=== PATIENT | female | born 1990 | race Caucasian/White ===

== ENCOUNTER → 2016-10-14 | Outpatient (CLI) | payer BC ==
--- NOTE | 2016-10-14 21:09 | MR ---
EXAMINATION TYPE: MR brain wo con DATE OF EXAM: 10/14/2016 8:06 PM COMPARISON: NONE HISTORY: Chronic headache, no trauma. Persistent daily headaches per order. TECHNIQUE: Multiplanar, multisequence imaging of the brain and brainstem is performed without IV cont rast. FINDINGS: Diffusion weighted images demonstrate no evidence of a recent infarct or other diffusion abnormality. There is no extraaxial fluid collection or significant white matter signal abnormality. The ventricu lar system and cisternal spaces are normal in size and appearance. The brain volume is age appropria te. Midline structures demonstrate normal morphology. The craniocervical junction appears within normal limits. Normal vascular flow voids are present. The visualized sinuses are clear and the globes are i ntact. IMPRESSION: No significant finding is seen to account for patient's symptoms.
== END | disposition home or self-care (01) ==
LOC: RADMRIMAIN 19:00
PROVIDERS: ATTEND Family Medicine
DX: R51 Headache (principal)
CPT/HCPCS: 70551

== ENCOUNTER 2017-09-28 10:27 | Outpatient (CLI) | payer BC ==
[2017-09-28 11:18] VITALS: BP 122/80; PULSE 112; RESP 16; TEMP 97.7
--- NOTE | 2017-10-27 08:32 | P.MSEPDOC ---
Presenting Problems - Arrival Data Date of Arrival on Unit: 09/28/17 Time of Arrival on Unit: 10:27 Mode of Transport: Ambulatory - Complaint OB-Reason for Admission/Chief Complaint: Rule Out PROM Comment: Pt c/o "Small gush" clear fluid at 0830-no continued leaking, didn't need to wear pad or change clothing. Medical History - Information : 2 Para: 1 Term: 1 : 0 Abortions: Spontaneous or Elective: 0 Number of Living Children: 1 - Gestational Age Gestational Age by HARISH (wks/days): 36 Weeks and 6 Days Review of Systems - Review of Systems Constitutional: No problems Breast: No problems ENT: No problems Cardiovascular: No problems Respiratory: No problems Gastrointestinal: No problems Genitourinary: No problems Musculoskeletal: No problems Neurological: No problems Skin: No problems Vital Signs - Temperature Temperature: 97.7 F Temperature Source: Temporal Artery Scan - Pulse Left Sitting Brachial Pulse Rate: 112 Pulse Assessment Method: Automatic Cuff - Respirations Respiratory Rate: 16 Oxygen Delivery Method: Room Air O2 Sat by Pulse Oximetry: 97 - Blood Pressure Right Arm Sitting Blood Pressure: 122/80 Blood Pressure Mean: 94 Blood Pressure Source: Automatic Cuff Medical Screen Scoring (Pre) - Cervical Exam Dilation: 1-3 cm = 1 Effacement: More than 50% = 2 Membranes: Intact - Uterine Contractions Frequency: N/A Duration: N/A Intensity: N/A - Maternal Vital Signs Maternal Temperature: N/A Maternal Blood Pressure: N/A Maternal Respirations: N/A - Pain Assessment Pain Intensity: 0 - Maternal Trauma Maternal Trauma: N/A - Assessment Baseline FHR: 155 Heart Rate - NICHD Category: Category I (Normal) = 0 NST: Reactive Position: N/A Station: N/A - Total Score Total Score (Pre): 3 - Level of Risk Level of Risk: Low (0-5) Physician Notification (Pre) - Physician Notified Physician Notified Date: 09/28/17 Physician Notified Time: 11:08 Physician/Practitioner Notifed:: Stanislaw Spoke With: Stanislaw New Order Received: Yes - Notification Comment Comment: Negative amnisure, reactive NST, pt may be d/c home with pulse recheck of 100 or less. Pts pulse rechecked-98. Disposition - Disposition OB Disposition: Discharge to home, Written follow up instructions reviewed Discharge Date: 09/28/17 Discharge Time: 11:15 I agree with the RN Medical Screening Exam: Yes Risk & Benefit of care provided described in d/c instruction: Yes Diagnosis: FALSE LABOR BEFORE 37 COMPLETED WEEKS OF GEST, THIRD TRI
== END 2017-09-28 11:15 | disposition home or self-care (01) ==
LOC: FBPOP 10:27
PROVIDERS: ATTEND Obstetrics & Gynecology
DX: O47.03 False labor before 37 completed weeks of gestation, third trimester (principal); Z3A.36 36 weeks gestation of pregnancy
CPT/HCPCS: 59025; 84112; 99213

== ENCOUNTER 2017-10-20 13:55 | Inpatient (IN) | payer BC ==
[2017-10-20] MEDS: LACTATED RINGERS 1,000 ML IV SCH ×2 (14:25→15:35)
[2017-10-20] MEDS ORDERED: OXYTOCIN 10 UNIT/ML 1 ML VIAL IM PRN (14:29)
[2017-10-20] MEDS ORDERED: CARBOPROST TROMETHAMINE 250 MCG/ML 1 ML AMP IM PRN (14:29)
[2017-10-20] MEDS ORDERED: LIDOCAINE 1% (PF) 10 MG/ML (30 ML SDV) SQ PRN (14:29)
[2017-10-20] MEDS ORDERED: METHYLERGONOVINE 0.2 MG/ML 1 ML AMP IM PRN (14:29)
[2017-10-20] MEDS ORDERED: TERBUTALINE 1 MG/ML VIAL SQ PRN (14:29)
[2017-10-20] MEDS ORDERED: OXYTOCIN 20 UNITS/1000 ML NS 1,000 ML IV SCH ×2 (14:30→17:15)
[2017-10-20] MEDS ORDERED: LACTATED RINGERS 1,000 ML IV SCH (14:30)
[2017-10-20 14:52] VITALS: BMI 29.6
[2017-10-20 15:31] LABS: Basophils % (A) 0 %; Eosinophils % (A) 0 %; HCT 36.2 % (34.0-46.0); HGB 11.9 gm/dL (11.4-16.0); Lymphocytes # (A) 1.4 k/uL (1.0-4.8); Lymphocytes % (A) 13 %; MCH 30.5 pg (25.0-35.0); MCHC 32.8 g/dL (31.0-37.0); MCV 92.7 fL (80.0-100.0); Monocytes # (A) 0.5 k/uL (0-1.0); Monocytes % (A) 5 %; Neutrophils # (A) 8.5 k/uL (1.3-7.7); Neutrophils % (A) 80 %; Platelet Count 188 k/uL (150-450); RDW 13.9 % (11.5-15.5); WBC 10.6 k/uL (3.8-10.6)
--- NOTE | 2017-10-20 15:56 | P.HPOB ---
History of Present Illness H&P Date: 10/20/17 Chief Complaint: IUP @ 40 0/7 weeks, active labor This is a 27-year-old 2 para 1001 at 40-0/7 weeks, estimated due date of 10/20/2017. Patient presents to labor and delivery with complaints of contractions. She notes contractions to be every 3 minutes. On initial physical exam she was 6 cm dilated. She denies loss of fluid at this time. It is noted to be GBS negative. blood work showed a blood type of B+, rubella immune, RPR nonreactive, hepatitis B surface antigen negative, HIV negative normal 3 hour gtt. 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 10 oz. Review of Systems Constitutional: Denies fever Cardiovascular: Denies chest pain Respiratory: Denies dyspnea Gastrointestinal: Denies constipation, Denies diarrhea Genitourinary: Reports Past Medical History Past Medical History: No Reported History History of Any Multi-Drug Resistant Organisms: None Reported Additional Past Surgical History / Comment(s): [place] teeth removed Past Anesthesia/Blood Transfusion Reactions: No Reported Reaction Past Psychological History: No Psychological Hx Reported Smoking Status: Never smoker Past Alcohol Use History: None Reported Past Drug Use History: None Reported - Past Family History Mother Family Medical History: Thyroid Disorder Medications and Allergies Home Medications Medication Instructions Recorded Confirmed Type Ciy-Umeb-Xszqx Acid 1 each PO DAILY 06/14/14 09/28/17 History [-U Capsule] L.acidoph,Paracasei, B.lactis 1 tab PO DAILY 09/28/17 09/28/17 History [Probiotic] Allergies Allergy/AdvReac Type Severity Reaction Status Date / Time No Known Allergies Allergy Verified 09/28/17 10:43 Exam Osteopathic Statement: *. No significant issues noted on an osteopathic structural exam other than those noted in the History and Physical/Consult. - Vital Signs Vital signs: Vital Signs Temp Pulse Resp BP Pulse Ox 10/20/17 15:00 96.1 F L 105 H 16 120/77 100 10/20/17 14:26 97 F L 93 16 127/81 Intake and Output 10/20/17 10/20/17 10/20/17 06:59 14:59 22:59 Other: Weight 80.739 kg Patient Weight 10/21/17 06:59 Weight 80.739 kg - OBG Physical Exam Abdomen: gravid Cervix: /-1 Uterus: enlarged Results Result Diagrams: 10/20/17 14:48 Abnormal Lab Results - Last 24 Hours (Table) 10/20/17 Range/Units 14:48 Neutrophils # 8.5 H (1.3-7.7) k/uL Assessment and Plan (1) Term Current Visit: Yes Status: Acute Code(s): Z34.80 - ENCOUNTER FOR SUPRVSN OF NORMAL , UNSP TRIMESTER SNOMED Code(s): 44735968 (2) Active labor at term Narrative/Plan: admit to labor and delivery, amniotomy preformed noting clear fluid. anticipate Current Visit: Yes Status: Acute Code(s): YKL0156 - SNOMED Code(s): 04582409 Time with Patient: Less than 30
[2017-10-20] MEDS ORDERED: SIMETHICONE 80 MG CHEWABLE PO PRN (17:06)
[2017-10-20] MEDS ORDERED: ACETAMINOPHEN TAB 325 MG TAB PO PRN (17:06)
[2017-10-20] MEDS ORDERED: WITCH HAZEL 1 EACH MED..PAD TOPICAL PRN (17:06)
[2017-10-20] MEDS ORDERED: diphenhydrAMINE 50 MG/ML 1 ML VIAL IVP PRN ×2 (17:06)
[2017-10-20] MEDS ORDERED: ZOLPIDEM 5 MG TAB PO PRN (17:06)
[2017-10-20] MEDS ORDERED: BENZOCAINE/MENTHOL SPRAY 1 GM/SPRAY AEROSOL TOPICAL PRN (17:06)
[2017-10-20] MEDS ORDERED: diphenhydrAMINE 50 MG CAP PO PRN (17:06)
[2017-10-20] MEDS ORDERED: Acetaminophen-Codeine 300-30mg TAB PO PRN (17:06)
[2017-10-20] MEDS ORDERED: diphenhydrAMINE 25 MG CAP PO PRN (17:06)
[2017-10-20] MEDS ORDERED: LANOLIN CREAM 5 GM TUBE TOPICAL PRN (17:06)
[2017-10-20] MEDS ORDERED: HYDROCORTISONE 2.5% RECTAL CREAM 30 GM TUBE RECTAL PRN (17:06)
--- NOTE | 2017-10-20 17:15 | P.PROBDLV ---
Vaginal Delivery Note - . Vaginal Delivery Note: This is a very pleasant 27-year-old 2 para 1 at 40-0/7 weeks with an estimated due date of that presented in active labor. Patient had amniotomy at 7 cm yielding clear fluid. Patient progressed quickly to complete began pushing and had a spontaneous vaginal delivery of a viable male at 1640, weight of 9 lbs. 10 oz., Apgars of 9 and 9 at one and 5 minutes respectively. Patient became complete and started pushing, the 's head was at this point patient pushed, anterior shoulder was delivered gently followed by the posterior shoulder and the infant's body. The infant was then gently delivered and placed on the mother's abdomen. The cord was then doubly clamped and cut the placenta was then delivered spontaneously intact with a three- vessel cord. Estimated blood loss was noted to be approximate 400. Inspection the patient's vaginal vault a first-degree vaginal laceration was noted this was repaired with 3-0 rapide in the usual fashion. Slight increase in bleeding was noted given the size of the baby, a dose of Methergine was given secondary to uterine atony. Afterwards lochia was noted to be normal in nature. All counts were correct 2 patient and infant are resting comfortably after delivery
[2017-10-20] MEDS: IBUPROFEN 600 MG TAB PO PRN ×2 (18:04→23:53)
[2017-10-20] MEDS: SENNOSIDES-DOCUSATE SODIUM 1 EACH TAB PO SCH (21:21)
[2017-10-21] MEDS: IBUPROFEN 600 MG TAB PO PRN ×3 (06:26→17:48)
[2017-10-21 08:40] VITALS: TEMP 98.6
[2017-10-21] MEDS: SENNOSIDES-DOCUSATE SODIUM 1 EACH TAB PO SCH (09:05)
--- NOTE | 2017-10-21 09:36 | P.DS ---
Providers Date of admission: 10/20/17 14:22 Expected date of discharge: 10/21/17 Attending physician: Ksenia Dover Primary care physician: Stated None - Discharge Diagnosis(es) (1) Term Current Visit: Yes Status: Acute (2) Active labor at term Current Visit: Yes Status: Acute Hospital Course: This is a 27-year-old 2 para 1 at 40-0/7 weeks that presented to labor and delivery in active labor. Patient progressed through labor eventually amniotomy was performed yielding clear fluid. She progressed to complete and had a spontaneous vaginal delivery of a viable male infant weight 9 lbs. 10 oz. at 1640 with Apgars of 9 and 9 at one and 5 minutes respectively. Next Patient's course has been uneventful so far she is ambulating and voiding without difficulty. She states her pain is controlled. She is breast- feeding without issue at this time. She does wish to go home on this day #1 Patient Condition at Discharge: Good Plan - Discharge Summary Discharge Rx Participant: No New Discharge Prescriptions: No Action Ycm-Hids-Blvps Acid [-U Capsule] 1 each PO DAILY L.acidoph,Paracasei, B.lactis [Probiotic] 1 tab PO DAILY Discharge Medication List Lhy-Wrkv-Zkrsw Acid [-U Capsule] 1 each PO DAILY 06/14/14 [ History] L.acidoph,Paracasei, B.lactis [Probiotic] 1 tab PO DAILY 09/28/17 [History] Follow up Appointment(s)/Referral(s): Ksenia Dover MD [STAFF PHYSICIAN] - 6 Weeks Patient Instructions/Handouts: Vaginal Delivery (DC) Discharge Disposition: HOME SELF-CARE
[2017-10-21] MEDS ORDERED: PRENATAL VIT-IRON-FOLIC ACID 1 EACH CAP PO SCH (12:00)
[2017-10-21 16:12] VITALS: BP 114/64; PULSE 89; RESP 14
== END 2017-10-21 17:51 | disposition home or self-care (01) | DRG 775 ==
LOC: FBPOP 13:55 → 4FBP 14:22
PROVIDERS: ADMIT Obstetrics & Gynecology Obstetrics; ATTEND Obstetrics & Gynecology
PROC: 10E0XZZ Delivery of Products of Conception, External Approach (ICD-10-PCS; principal; 2017-10-20)
PROC: 0HQ9XZZ Repair Perineum Skin, External Approach (ICD-10-PCS; 2017-10-20)
PROC: 10907ZC Drainage of Amniotic Fluid, Therapeutic from Products of Conception, Via Natural or Artificial Opening (ICD-10-PCS; 2017-10-20)
DX: O70.0 First degree perineal laceration during delivery (principal); Z37.0 Single live birth; Z3A.40 40 weeks gestation of pregnancy; Z79.899 Other long term (current) drug therapy
CPT/HCPCS: 59025; 85025; 99213